=== PATIENT | male | born 1995 | race Caucasian/White ===

== ENCOUNTER 2022-03-12 14:16 | Emergency (ER) | payer MEDICAID ==
[~2022-03-12] VITALS: Ht 185.4 cm; Wt 70.5 kg
[2022-03-12 14:37] VITALS: BP 134/75
[2022-03-12] MEDS ORDERED: CEPH-558 PO (15:46)
[2022-03-12] MEDS ORDERED: SULF-261 PO (15:46)
== END 2022-03-12 15:54 | disposition home or self-care (01) ==
LOC: EMS 14:16
DX: L03.811 Cellulitis of head [any part, except face] (principal)
CPT/HCPCS: 99283

== ENCOUNTER 2022-09-21 19:24 | Emergency (ER) | payer SELFPAY ==
[~2022-09-21] VITALS: Ht 182.9 cm; Wt 72.7 kg
[~2022-09-21 19:24] MED LIST: CEPH-558 PO; SULF-261 PO
[2022-09-21 20:12] LABS: AMPHET/METH SCREEN,URINE POSITIVE (NEGATIVE); BARBITURATE SCREEN, URINE NEGATIVE (NEGATIVE); BENZODIAZEPINES SCREEN,URINE NEGATIVE (NEGATIVE); CANNABINOID SCREEN,URINE POSITIVE (NEGATIVE); COCAINE SCREEN,URINE POSITIVE (NEGATIVE); METHADONE SCREEN, URINE NEGATIVE (NEGATIVE); OPIATE SCREEN,URINE NEGATIVE (NEGATIVE)
[2022-09-21 20:15] LABS: PHENCYCLIDINE SCREEN,URINE NEGATIVE (NEGATIVE)
[2022-09-21] MEDS ORDERED: SODIUM CHLORIDE 0.9% 1,000 ML IV ONE (21:30)
[2022-09-21 21:40] LABS: BASOPHILS % (AUTO) 0.9 % (0.0-2.0); EOSINOPHILS % (AUTO) 0.4 % (1.0-6.0); HEMATOCRIT 44.7 % (41-53); HEMOGLOBIN 15.7 g/dL (13.5-17.5); LYMPHOCYTES # (AUTO) 3.6 K/uL (1.0-4.8); LYMPHOCYTES % (AUTO) 49.2 % (22.0-44.0); MEAN CORPUSCULAR HEMOGLOBIN 32.3 pg (26.0-34.0); MEAN CORPUSCULAR HGB CONC 35.1 G/dL (31.0-37.0); MEAN CORPUSCULAR VOLUME 92 fL (80-100); MONOCYTES # (AUTO) 0.8 K/uL (0.1-1.0); MONOCYTES % (AUTO) 10.8 % (2.0-9.0); NEUTROPHILS # (AUTO) 2.8 K/uL (1.8-7.7); NEUTROPHILS % (AUTO) 38.7 % (40.0-70.0); PLATELET COUNT (AUTO) 287 K/uL (150-450); RED BLOOD CELL COUNT(AUTO) 4.87 MIL/uL (4.50-5.90); RED CELL DISTRIBUTION WIDTH 12.6 % (11.5-14.5)
[2022-09-21 21:50] LABS: ANION GAP 8 mmol/L (8-16); CALCIUM, TOTAL 9.6 mg/dL (8.8-10.5); CARBON DIOXIDE 28 mmol/L (22-29); CHLORIDE 100 mmol/L (98-107); CREATININE 1.09 mg/dL (0.60-1.30); GLUCOSE,RANDOM 84 mg/dL (70-110); SODIUM SERUM 136 mmol/L (136-145); UREA NITROGEN, BLOOD 16 mg/dL (7-18)
[2022-09-21 21:51] LABS: GLOMERULAR FILTR. RATE CALC > 60 mL/min (>60)
[2022-09-21 21:55] LABS: PROTHROMBIN TIME 10.6 SEC (9.4-11.6)
[2022-09-21 21:56] LABS: ALANINE AMINOTRANSFERASE 22 U/L (12-78); ALBUMIN 4.5 g/dL (3.4-5.0); ALKALINE PHOSPHATASE 86 U/L (46-116); ASPARTATE AMINOTRANSFERASE 21 U/L (15-37); BILIRUBIN,TOTAL 0.7 mg/dL (0.1-1.0); TOTAL PROTEIN, SERUM 8.5 g/dL (6.4-8.2)
[2022-09-21 23:00] VITALS: BP 132/85
== END 2022-09-21 23:15 | disposition home or self-care (01) ==
LOC: EMS 19:27
DX: R55 Syncope and collapse (principal); E86.0 Dehydration; F14.90 Cocaine use, unspecified, uncomplicated; F15.90 Other stimulant use, unspecified, uncomplicated
CPT/HCPCS: 71045; 80053; 84484; 85025; 85610; 85730; 93005; 96360; 99285; 36415-L1; 36415-TC